=== PATIENT | male | born 1970 | race Caucasian/White ===

== ENCOUNTER 2020-08-27 12:25 | Emergency (ER) | payer OTHER | END 2020-08-27 15:24 | disposition home or self-care (01) | LOC: JVIRT 12:25 | DX: Z03.818 Encounter for observation for suspected exposure to other biological agents ruled out (principal) | CPT/HCPCS: C9803; Q3014-GT; U0003 ==

== ENCOUNTER 2022-03-19 04:06 | Emergency (ER) | payer OTHER ==
[2022-03-19 04:35] VITALS: BP 122/55; RESP 20; TEMP 100.4; BMI 27.9
[2022-03-19] MEDS ORDERED: ACETAMINOPHEN 1000 MG/100 ML BAG IVPB ONE (04:55)
[2022-03-19] MEDS ORDERED: SODIUM CHLORIDE 0.9% 500 ML INFUS.BAG IV ONE (04:55)
[2022-03-19] MEDS ORDERED: ACETAMINOPHEN INJECTION 100 ML IVPB ONE (05:09)
[2022-03-19 05:32] LABS: BASO % 0.5 % (0-2.0); EOS % 0.3 % (0-4.5); HEMATOCRIT 47.2 % (35.4-49); HEMOGLOBIN 16.2 GM/dL (11.7-16.9); LYMPH % 12.4 % (8-40); MCH 30.6 pg (25.7-33.7); MCHC 34.4 g/dl (32.0-35.9); MEAN CELL VOLUME 89.1 fl (80-96); MONO % 11.9 % (3.8-10.2); NEUT % 74.9 % (42.8-82.8); PLATELET COUNT 213 10^3/uL (134-434); RDW 12.7 % (11.9-15.9); WHITE BLOOD COUNT 8.5 K/mm3 (4.0-10.0)
[2022-03-19 05:55] LABS: ALBUMIN 3.7 g/dl (3.4-5.0); BLOOD UREA NITROGEN 12.6 mg/dL (7-18); MAGNESIUM 1.9 mg/dL (1.8-2.4)
[2022-03-19 05:57] LABS: THROAT:GRP A STREP NOT DETECTED (NOTDETECTED)
[2022-03-19 05:58] LABS: CREATININE 1.1 mg/dL (0.55-1.3)
[2022-03-19 05:59] LABS: TOT PROT 7.4 g/dl (6.4-8.2)
[2022-03-19 06:00] LABS: BILIRUBIN,TOTAL 1.1 mg/dL (0.2-1)
[2022-03-19 06:42] VITALS: PULSE 108
== END 2022-03-19 07:08 | disposition home or self-care (01) ==
LOC: JER 04:06
PROC: 3E033GC Introduction of Other Therapeutic Substance into Peripheral Vein, Percutaneous Approach (ICD-10-PCS; principal; 2022-03-19)
DX: U07.1 COVID-19 (principal)
CPT/HCPCS: 0241U-QW; 36415; 80053; 83735; 85025; 87070; 87651; 99284-25